=== PATIENT | female | born 1955 | race Caucasian/White ===

== ENCOUNTER 2020-08-13 13:29 | Inpatient (IN) | payer MEDICARE ==
[~2020-08-13] VITALS: Ht 157.5 cm; Wt 60.1 kg
[2020-08-13] MEDS ORDERED: ONDANSETRON 4 MG/2 ML (SDV) Z0FRAN IV PRN (14:00)
[2020-08-13] MEDS ORDERED: polyethylene glycoL POWDER 17 GM (MIRALAX) PACK PO PRN (14:00)
[2020-08-13] MEDS ORDERED: BISACODYL 10 MG SUPP (DULCOLAX) PR PRN (14:00)
[2020-08-13] MEDS ORDERED: MELATONIN 3 MG TABLET PO PRN (14:00)
[2020-08-13] MEDS ORDERED: diphenhydrAMINE 25 MG TAB (BENADRYL) PO PRN (14:00)
[2020-08-13] MEDS ORDERED: ONDANSETRON 4 MG (ZOFRAN) ORAL DISSOLVE TAB PO PRN (14:00)
[2020-08-13] MEDS ORDERED: ANTACID SUSP 30 ML UDC (MYLANTA) PO PRN (14:00)
[2020-08-13 14:54] VITALS: BP 146/96
[2020-08-13] MEDS: ENOXAPARIN 40 MG/0.4 ML (LOVENOX) SYR SC SCH (15:17)
[2020-08-13] MEDS: inSUlin ASPART (NovoLOG) 1 UNIT/0.01 ML (CHARGE PER UNIT) SC SCH ×2 (15:24→22:39)
--- NOTE | 2020-08-13 16:37 | NUR ---
LAMONT ALEXANDER admitted to room 425-1, with an admitting diagnosis of SOB, covid +, on 08/13/20 from [facility] [place] via stretcher EMS, accompanied by EMS staff .LAMONT ALEXANDER introduced to surroundings, call light, bed controls, phone, TV, temperature control, lights, meal times, smoking policy, visitor policy, side rail policy, bathrooms and showers. Patient Rights given to patient in the handbook. LAMONT ALEXANDER verbalizes understanding that [facility] is not responsible for the loss or damage to any personal effects or valuables that are kept in the patients posession during their hospitalization. The following Patient Care Plans and discharge were discussed with the patient, LAMONT ALEXANDER verbalizes understanding of Interdisciplinary Patient Education. Patient was informed about the Rapid Response Team and its purpose.
[2020-08-13] MEDS ORDERED: FLU QUADRIvalent (3YOA+) 60 mcg/0.5 ml 2020-21 (AFLURIA) IM ONE (20:00)
[2020-08-13] MEDS: DOCUSATE SODIUM 100 MG (COLACE) CAP PO SCH (20:20)
[2020-08-13] MEDS: SENNOSIDES 8.6 MG (SENOKOT) TAB PO SCH (20:20)
[2020-08-13 20:24] VITALS: BP 127/77
[2020-08-13] MEDS: LATANOPROST 0.005% (XALATAN) OPHTH SOLN 2.5 ML OU SCH (21:00)
[2020-08-13] MEDS: ACETAMINOPHEN 325 MG TABLET PO PRN (22:38)
[2020-08-13] MEDS: MONTELUKAST 10 MG (SINGULAIR) TAB PO SCH (22:38)
[2020-08-13] MEDS ORDERED: RT-ALBUTEROL INHALER HFA (VENTOLIN HFA) 18 GM IH ONE (23:02)
[2020-08-13] MEDS: RT-ALBUTEROL INHALER HFA (VENTOLIN HFA) 18 GM IH SCH (23:05)
[2020-08-13 23:31] VITALS: BP 127/71
[2020-08-13] MEDS ORDERED: RT-ALBUTEROL INHALER HFA (VENTOLIN HFA) 18 GM IH PRN (23:45)
[2020-08-14] VITALS (19 sets, daily range): BP systolic 94–152; BP diastolic 60–91
[2020-08-14] MEDS ORDERED: DIPH25CA79 PO (01:10)
[2020-08-14] MEDS ORDERED: LEVA0.316 IH (01:10)
[2020-08-14] MEDS ORDERED: PRD20T PO ×2 (01:10)
[2020-08-14] MEDS ORDERED: TIOT18CA2 IH (01:10)
[2020-08-14] MEDS ORDERED: SITA100T12 PO ×2 (01:10→14:33)
[2020-08-14] MEDS ORDERED: GUAI600T43 PO (01:10)
[2020-08-14] MEDS ORDERED: CHOL200078 PO (01:10)
[2020-08-14] MEDS ORDERED: FLUT12AE4 INH (01:10)
[2020-08-14] MEDS ORDERED: LATA2.5D19 OU (01:10)
[2020-08-14] MEDS ORDERED: FENO160T12 PO (01:10)
[2020-08-14] MEDS ORDERED: OMEP20TA7 PO (01:10)
[2020-08-14] MEDS ORDERED: PRIM50TA33 PO (01:10)
[2020-08-14] MEDS ORDERED: DUPI300S SQ (01:10)
[2020-08-14] MEDS ORDERED: [UNRECOGNIZED DRUG - CODE] MC (01:10)
[2020-08-14] MEDS ORDERED: MONT10TA26 PO (01:10)
[2020-08-14] MEDS ORDERED: FLAX1CAP6 PO (01:10)
[2020-08-14] MEDS ORDERED: CETI10TA49 PO (01:10)
[2020-08-14] MEDS ORDERED: IMMU50VI2 (01:10)
[2020-08-14] MEDS ORDERED: OMAL150S SQ (01:10)
[2020-08-14] MEDS ORDERED: MYCO500T34 PO (01:10)
--- NOTE | 2020-08-14 01:13 | NUR ---
MED REC ENTERED PER [facility] EMERGENCY DEPARTMENT- JANELLE ZAMBRANO- TRANSFER PAPER AND PATIENT REPORT BY THIS RN.
[2020-08-14 04:37] LABS: BASOPHILS % (AUTO) 0 % (0-10); EOSINOPHILS % (AUTO) 0 % (0-10); HEMATOCRIT 43 % (35-52); HEMOGLOBIN 14.5 g/dL (11.5-16.0); LYMPHOCYTES # (AUTO) 1.1 10^3/uL (1.0-4.0); LYMPHOCYTES % (AUTO) 29 % (12-44); MEAN CORPUSCULAR HEMOGLOBIN 31 pg (25-34); MEAN CORPUSCULAR HGB CONC 34 g/dL (32-36); MEAN CORPUSCULAR VOLUME 91 fL (80-99); MEAN PLATELET VOLUME 11.6 fL (9.0-12.2); MONOCYTES # (AUTO) 0.4 10^3/uL (0.0-1.0); MONOCYTES % (AUTO) 11 % (0-12); NEUTROPHILS # (AUTO) 2.3 10^3/uL (1.8-7.8); NEUTROPHILS % (AUTO) 59 % (42-75); PLATELET COUNT 181 10^3/uL (130-400); WHITE BLOOD COUNT 3.9 10^3/uL (4.3-11.0)
[2020-08-14 04:50] LABS: ALBUMIN 3.7 GM/DL (3.2-4.5); CHLORIDE 103 MMOL/L (98-107); POTASSIUM 3.8 MMOL/L (3.6-5.0); SODIUM 136 MMOL/L (135-145)
[2020-08-14 04:51] LABS: CALCIUM 8.5 MG/DL (8.5-10.1)
[2020-08-14 04:52] LABS: GLUCOSE 150 MG/DL (70-105)
[2020-08-14 04:53] LABS: TOTAL PROTEIN 6.6 GM/DL (6.4-8.2)
[2020-08-14 04:54] LABS: BILIRUBIN,TOTAL 0.5 MG/DL (0.1-1.0); CARBON DIOXIDE 20 MMOL/L (21-32)
[2020-08-14 04:56] LABS: ALKALINE PHOSPHATASE 63 U/L (40-136); CREATININE SERUM 0.74 MG/DL (0.60-1.30); GFR ESTIMATED > 60
[2020-08-14 04:57] LABS: BUN/CREATININE RATIO 18
[2020-08-14 04:59] LABS: ALANINE AMINOTRANSFERASE 73 U/L (0-55); MAGNESIUM 1.8 MG/DL (1.6-2.4)
[2020-08-14] MEDS: KCL 20 MEQ TAB (K-DUR) PO SCH (05:10)
[2020-08-14] MEDS: MAGNESIUM 1 GM/100 ML IVPB 100 ML IV SCH (05:10)
[2020-08-14] MEDS: POTASSIUM CL 10MEQ/50ML IVPB 50 ML IV SCH (05:10)
[2020-08-14] MEDS: inSUlin ASPART (NovoLOG) 1 UNIT/0.01 ML (CHARGE PER UNIT) SC SCH ×4 (05:10→20:12)
[2020-08-14] MEDS ORDERED: dexAMETHasone 6 MG TAB (DECADRON) PO SCH (07:00)
[2020-08-14] MEDS: DOCUSATE SODIUM 100 MG (COLACE) CAP PO SCH ×2 (08:09→20:13)
[2020-08-14] MEDS: SENNOSIDES 8.6 MG (SENOKOT) TAB PO SCH ×2 (08:09→20:08)
[2020-08-14] MEDS ORDERED: NS IV 500 ML 500 ML IV SCH (08:19)
--- NOTE | 2020-08-14 08:54 | History & Physical-Hospitalist ---
History of Present Illness HPI/Chief Complaint Pt is a 65yoCF with a PMH of severe COPD/Asthma, NIDDMII who presented to outside ER due to cough, SOB, and fever. Her symptoms started on 08/11 with a high fever and severe fatigue. She didn't want to go with the ER with such a high fever so waited until 08/13 to be seen in the ER. She was found to be hypoxia and COVID positive prompting admission. This morning she states she has a severe cough and is conversationally dyspneic throughout our conversation. She denies history of intubation from asthma/COPD but states she has been "very close." Source: patient Exam Limitations: no limitations Date Seen 08/14/20 Time Seen by a Provider: 08:56 Attending Physician Zoe Ahuja MD PCP Amador Pal MD Referring Physician Date of Admission Aug 13, 2020 at 14:48 Home Medications & Allergies Home Medications Reviewed patient Home Medication Reconciliation performed by pharmacy medication reconciliations polysomnographic technician and/or nursing. Patients Allergies have been reviewed. Allergies Allergies Coded Allergies HARLEEN Inhibitors (Verified Allergy, Severe, 08/13/20) amoxicillin (Verified Allergy, Severe, 08/13/20) azithromycin (Verified Allergy, Severe, 08/13/20) ciprofloxacin (Verified Allergy, Severe, 08/13/20) clavulanic acid (Verified Allergy, Severe, 08/13/20) glycine (Verified Allergy, Severe, 08/13/20) immune globulin,alpha (IgA) greater than 50 mcg/mL (Verified Allergy, Severe, 08/13/20) immune globulin,gamma (IgG) human (Verified Allergy, Severe, 08/13/20) losartan (Verified Allergy, Severe, 08/13/20) regadenoson (Verified Allergy, Severe, 08/13/20) tetracycline (Verified Allergy, Severe, 08/13/20) soy (Verified Allergy, Intermediate, Wheezing, 08/13/20) strawberry (Verified Allergy, Intermediate, 08/13/20) fentanyl (Verified Allergy, Mild, 08/13/20) wheat (Verified Allergy, Mild, 08/13/20) Past Dnpshet-Fawyyi-Jkquer Hx Past Med/Social Hx: Reviewed Nursing Past Med/Soc Hx Patient Social History Alcohol Use: Rarely Uses Alcohol Beverage of Choice: Wine Recreational Drug Use: No Smoking Status: Never a Smoker Physical Abuse Screen: No Sexual Abuse: No Recent Foreign Travel: No Contact w/other who traveled: No Recent Hopitalizations: Yes Recent Infectious Disease Expo: No Immunizations Up To Date Pediatric: No Date of Pneumonia Vaccine: Jan 28, 2017 Seasonal Allergies Seasonal Allergies: Yes Past Medical History Respiratory: Asthma, COPD Currently Using CPAP: No Currently Using BIPAP: No : No Sexually Transmitted Disease: No HIV/AIDS: No Female Reproductive Disorders: Denies Gastrointestinal: Gastroesophageal Reflux Endocrine: Diabetes, Non-Insulin dep Are Your Blood Sugars Over 250: No HEENT: Cataract, Glaucoma Loss of Vision: Denies Hearing Impairment: Denies History of Blood Disorders: No Adverse Reaction to Blood Uribe: No Family History Patient reports no known family medical history. Review of Systems Constitutional: chills, fever, malaise, weakness EENTM: No eye pain, No nose congestion Respiratory: cough, dyspnea on exertion, short of breath Cardiovascular: No chest pain, No Hx of Intervention Gastrointestinal: No abdominal pain, No constipation, No diarrhea, No nausea, No vomiting Genitourinary: incontinence (stress) Musculoskeletal: muscle cramps Skin: no symptoms reported Psychiatric/Neurological: No Symptoms Reported Physical Exam Physical Exam Vital Signs Vital Signs - First Documented 08/13/20 08/14/20 14:54 15:27 Temp 35.3 Pulse 97 Resp 20 B/P (MAP) 146/96 Pulse Ox 95 O2 Delivery Nasal Cannula O2 Flow Rate 3.00 FiO2 28 Capillary Refill : Less Than 3 Seconds Height, Weight, BMI Height: '" Weight: lbs. oz. kg; 24.10 BMI Method: General Appearance: No Apparent Distress, WD/WN Respiratory: No Accessory Muscle Use, Decreased Breath Sounds, Stridor (when I first entered the room but cleared) Cardiovascular: Regular Rate, Rhythm, No Murmur Gastrointestinal: Normal Bowel Sounds, Non Tender, Soft Extremity: Normal Inspection, No Pedal Edema Neurologic/Psychiatric: Alert, Oriented x3, Normal Mood/Affect Skin: Erythema Results Results/Procedures Labs Laboratory Tests 08/14/20 04:12 08/15/20 02:45 Patient resulted labs reviewed. Imaging: Reviewed Imaging Report Assessment/Plan Admission Diagnosis COVID19 Hypoxia COPD/Asthma Continue decadron Discussed EUA status of remdesivir and convalescent plasma with patient who agrees to treatment Due to stridor and conversational dyspnea will transfer to ICU as is high risk for decompensation Discussed with lincoln Harrison Continue home meds as able MAT protocol IS Lovenox NIDDMII anticipate higher BS with steroids SSI Elevated LFTs Mild, trend with remdesivir Admission Status: Inpatient Order (span 2 midnights) Reason for Inpatient Admission: high risk for decopmensation, hypoxia, will take more than two midnights to optimize for DC Clinical Quality Measures DVT/VTE Risk/Contraindication: Risk Factor Score Per Nursin RFS Level Per Nursing on Admit: 3=High GERA AVALOS MD Aug 14, 2020 08:54
--- NOTE | 2020-08-14 09:00 | NUR ---
REPORT GIVEN TO JAMEL HUERTAS IN ICU.
[2020-08-14] MEDS ORDERED: REMDESIVIR INJ 200 MG in NS (IVPB) 210 ML IV NR (10:00)
--- NOTE | 2020-08-14 10:27 | NUR ---
PT TRANSFER TO ICU 9 AT THIS TIME VIA BED.
[2020-08-14] MEDS: RT-ALBUTEROL INHALER HFA (VENTOLIN HFA) 18 GM IH SCH ×3 (10:50→22:06)
[2020-08-14] MEDS: CEFEPIME INJECTION 1,000 MG in WATER (STERILE) FOR INJECTION 10 ML IV SCH ×3 (13:24→23:58)
--- NOTE | 2020-08-14 13:25 | NUR ---
pt assisted up to bed side bathroom at this time, pt tolerated well. pt face and back noted to be red. pt back to bed. vss. Rivera MANAGER TALENT ACQUISITION states pt has been red. pt denies any needs.
[2020-08-14] MEDS ORDERED: DIPH50CA PO (14:33)
--- NOTE | 2020-08-14 14:37 | Diagnostic Imaging Report ---
INDICATION: Pneumonia. Hypoxia. COMPARISON: None. FINDINGS: Single frontal view of the chest demonstrates normal heart size. Pulmonary vasculature is mildly prominent. There is also slight prominence of the interstitium. There is no prior available for comparison purposes. There is no large effusion or pneumothorax. Osseous structures show no gross acute abnormalities. IMPRESSION: 1. Slight prominence of the interstitium, which may relate to interstitial edema given the mild vascular congestion. Interstitial pneumonia however cannot be excluded. Clinical correlation is advised. Dictated by: Dictated on workstation # [id number]
[2020-08-14] MEDS ORDERED: LEVA15HF5 IH (14:48)
[2020-08-14] MEDS ORDERED: OMEG10005 PO (14:48)
[2020-08-14] MEDS ORDERED: CYAN500T44 PO (14:48)
[2020-08-14] MEDS ORDERED: PRD10T PO (14:50)
[2020-08-14] MEDS ORDERED: RT-ALBUTEROL INHALER HFA (VENTOLIN HFA) 18 GM IH PRN (16:00)
--- NOTE | 2020-08-14 16:22 | NUR ---
SPOKE WITH THE PT AND WENT THRU THE EXT MED HISTORY TO COMPLETE THE MED REC PT HAD A MEDICATION LIST WITH HER AND SHE SENT ME A PICTURE THRU TEXT MESSAGE PT GETS ALL HER INHALER SAMPLES FROM DR. ESTRADA PT GETS PRIVIGEN INJECTIONS EVERY 2 WEEKS BUT SHE DOESNT KNOW THE DOSE THEREFORE I ENTERED IT AN UNKNOWN DOSE OTC: DIPHENHYDRAMINE FLAXSEED VITAMIN D3 VITAMIN B12 MUCINEX ZYRTEC
[2020-08-14] MEDS: ENOXAPARIN 40 MG/0.4 ML (LOVENOX) SYR SC SCH (16:31)
[2020-08-14] MEDS: guaiFENesin/DM (ROBITUSSIN DM) 10 ML UDC PO PRN (19:55)
[2020-08-14] MEDS: LATANOPROST 0.005% (XALATAN) OPHTH SOLN 2.5 ML OU SCH (20:05)
[2020-08-14] MEDS: PRIMIDONE 50 MG TAB (MYSOLINE) PO SCH (20:13)
[2020-08-14] MEDS: MONTELUKAST 10 MG (SINGULAIR) TAB PO SCH (20:13)
[2020-08-14] MEDS: PANTOPRAZOLE 40 MG (PROTONIX) TAB PO SCH (20:13)
[2020-08-15] VITALS (24 sets, daily range): BP systolic 98–131; BP diastolic 61–95
[2020-08-15] MEDS: guaiFENesin/DM (ROBITUSSIN DM) 10 ML UDC PO PRN ×5 (00:02→23:32)
[2020-08-15] MEDS: ACETAMINOPHEN 325 MG TABLET PO PRN ×2 (00:12→09:21)
[2020-08-15] MEDS: RT-ALBUTEROL INHALER HFA (VENTOLIN HFA) 18 GM IH SCH ×6 (01:53→23:39)
[2020-08-15 02:56] LABS: BASOPHILS % (AUTO) 0 % (0-10); EOSINOPHILS % (AUTO) 0 % (0-10); HEMATOCRIT 40 % (35-52); HEMOGLOBIN 13.1 g/dL (11.5-16.0); LYMPHOCYTES # (AUTO) 1.7 10^3/uL (1.0-4.0); LYMPHOCYTES % (AUTO) 22 % (12-44); MEAN CORPUSCULAR HEMOGLOBIN 31 pg (25-34); MEAN CORPUSCULAR HGB CONC 33 g/dL (32-36); MEAN CORPUSCULAR VOLUME 93 fL (80-99); MONOCYTES # (AUTO) 0.6 10^3/uL (0.0-1.0); MONOCYTES % (AUTO) 8 % (0-12); NEUTROPHILS # (AUTO) 5.3 10^3/uL (1.8-7.8); NEUTROPHILS % (AUTO) 70 % (42-75); PLATELET COUNT 163 10^3/uL (130-400); WHITE BLOOD COUNT 7.7 10^3/uL (4.3-11.0)
[2020-08-15 03:18] LABS: ALBUMIN 3.7 GM/DL (3.2-4.5); CHLORIDE 102 MMOL/L (98-107); POTASSIUM 3.4 MMOL/L (3.6-5.0); SODIUM 137 MMOL/L (135-145)
[2020-08-15 03:20] LABS: CALCIUM 8.2 MG/DL (8.5-10.1)
[2020-08-15 03:21] LABS: GLUCOSE 131 MG/DL (70-105); TOTAL PROTEIN 6.1 GM/DL (6.4-8.2)
[2020-08-15 03:22] LABS: CARBON DIOXIDE 22 MMOL/L (21-32)
[2020-08-15 03:23] LABS: BILIRUBIN,TOTAL 0.6 MG/DL (0.1-1.0)
[2020-08-15 03:24] LABS: ALKALINE PHOSPHATASE 47 U/L (40-136); CREATININE SERUM 0.77 MG/DL (0.60-1.30); GFR ESTIMATED > 60; PHOSPHORUS 2.4 MG/DL (2.3-4.7)
[2020-08-15 03:25] LABS: BUN/CREATININE RATIO 22
[2020-08-15 03:27] LABS: ALANINE AMINOTRANSFERASE 55 U/L (0-55); MAGNESIUM 1.7 MG/DL (1.6-2.4)
[2020-08-15] MEDS: MAGNESIUM 1 GM/100 ML IVPB 100 ML IV SCH ×3 (03:40→03:56)
[2020-08-15] MEDS: POTASSIUM CL 10MEQ/50ML IVPB 50 ML IV SCH (03:41)
[2020-08-15] MEDS: KCL 20 MEQ TAB (K-DUR) PO SCH (03:41)
--- NOTE | 2020-08-15 04:58 | Pulmonary Consultation ---
History of Present Illness History of Present Illness Date Seen by Provider: Aug 15, 2020 Time Seen by Provider: 04:53 Date of Admission Allergies and Home Medications Allergies Coded Allergies: HARLENE Inhibitors (Verified Allergy, Severe, 08/13/20) amoxicillin (Verified Allergy, Severe, 08/13/20) azithromycin (Verified Allergy, Severe, 08/13/20) ciprofloxacin (Verified Allergy, Severe, 08/13/20) clavulanic acid (Verified Allergy, Severe, 08/13/20) glycine (Verified Allergy, Severe, 08/13/20) immune globulin,alpha (IgA) greater than 50 mcg/mL (Verified Allergy, Severe, 08/13/20) immune globulin,gamma (IgG) human (Verified Allergy, Severe, 08/13/20) losartan (Verified Allergy, Severe, 08/13/20) regadenoson (Verified Allergy, Severe, 08/13/20) tetracycline (Verified Allergy, Severe, 08/13/20) soy (Verified Allergy, Intermediate, Wheezing, 08/13/20) strawberry (Verified Allergy, Intermediate, 08/13/20) fentanyl (Verified Allergy, Mild, 08/13/20) wheat (Verified Allergy, Mild, 08/13/20) Home Medications Cetirizine HCl 10 Mg Tablet, 5 MG PO DAILY, (Reported) Cholecalciferol (Vitamin D3) 50 Mcg Tab.chew, 1,000 UNITS PO DAILY, (Reported) Cyanocobalamin (Vitamin B-12) 500 Mcg Tablet, 500 MCG PO DAILY, (Reported) Diphenhydramine HCl 50 Mg Capsule, 100 MG PO DAILY, (Reported) TAKES 2 (50MG) TABLETS Dupilumab 300 Mg/2 Ml Syringe, 300 MG SQ EVERY 2 WEEKS, (Reported) Fenofibrate 160 Mg Tablet, 160 MG PO DAILY, (Reported) Fluticasone/Salmeterol 12 Gm Hfa.aer.ad, 2 PUFF INH Q12H, (Reported) Guaifenesin 600 Mg Tab.er.12h, 600 MG PO BID, (Reported) Immune Globulin,Gamma(IgG) 50 Ml Vial, Unknown Dose EVERY 2 WEEKS, (Reported) Latanoprost 2.5 Ml Drops, 1 DROP OU HS, (Reported) Levalbuterol Tartrate 15 Gm Hfa.aer.ad, 2 PUFF IH Q4H PRN for SHORTNESS OF BREATH, (Reported) Montelukast Sodium 10 Mg Tablet, 10 MG PO HS, (Reported) Mycophenolate Mofetil 500 Mg Tablet, 1,000 MG PO BID, (Reported) TAKES 2 (500MG) CAPSULES BID Omalizumab 150 Mg/1 Ml Syringe, 150 MG SQ EVERY 2 WEEKS, (Reported) [place]-3 Fatty Acids 1,000 Mg Capsule, 4,000 MG PO DAILY, (Reported) Omeprazole 20 Mg Tablet.dr, 20 MG PO BID, (Reported) Prednisone 20 Mg Tab, 20 MG PO DAILY, (Reported) Prednisone 10 Mg Tab, 10 MG PO DAILY, (Reported) Primidone 50 Mg Tablet, 50 MG PO HS, (Reported) Sitagliptin Phosphate 100 Mg Tablet, 100 MG PO DAILY, (Reported) TAKE WITH BREAKFAST Tiotropium Falcon 1 Inh Aerp, 18 MCG IH DAILY, (Reported) Past Dvuptaj-Dycpcr-Wchhsi Hx Past Med/Social Hx: Reviewed Nursing Past Med/Soc Hx Patient Social History Alcohol Use: Rarely Uses Number of Drinks Today: 0 Alcohol Beverage of Choice: Wine Recreational Drug Use: No Smoking Status: Never a Smoker Recent Foreign Travel: No Contact w/Someone Who Travel: No Recent Infectious Disease Expo: No Recent Hopitalizations: Yes Immunizations Up To Date PED Vaccines UTD: No Date of Pneumonia Vaccine: Jan 28, 2017 Seasonal Allergies Seasonal Allergies: Yes Past Medical History Surgeries: Yes Respiratory: Yes Asthma Currently Using CPAP: No Currently Using BIPAP: No Neurological: No : No Female Reproductive Disorders: Denies Sexually Transmitted Disease: No HIV/AIDS: No Genitourinary: No Gastrointestinal: Yes Gastroesophageal Reflux Musculoskeletal: Yes Endocrine: Yes Diabetes, Non-Insulin dep Are Your Blood Sugars Over 250: No HEENT: Yes Cataract, Glaucoma Loss of Vision: Denies Hearing Impairment: Denies Cancer: No Psychosocial: No Integumentary: No Blood Disorders: No Adverse Reaction/Blood Tranf: No Family Medical History Patient reports no known family medical history. Sepsis Event Evaluation Height, Weight, BMI Height: '" Weight: lbs. oz. kg; 24.10 BMI Method: Exam Exam Vital Signs Date Time Temp Pulse Resp B/P (MAP) Pulse Ox O2 Delivery O2 Flow Rate FiO2 08/15/20 04:07 37.2 Nasal Cannula 3.00 08/15/20 02:00 80 26 116/73 (87) 97 Nasal Cannula 4.00 08/15/20 01:52 95 Nasal Cannula 3.00 08/15/20 01:00 85 23 120/73 (89) 97 Nasal Cannula 4.00 08/15/20 00:12 37.9 08/15/20 00:00 92 131/80 (97) 94 Nasal Cannula 4.00 08/14/20 23:56 37.9 93 24 92 Nasal Cannula 4.00 08/14/20 23:00 90 36 129/80 (96) 93 Nasal Cannula 4.00 08/14/20 22:04 92 Nasal Cannula 3.00 08/14/20 22:00 85 23 136/84 (101) 95 Nasal Cannula 4.00 08/14/20 21:00 86 29 94/75 (81) 90 Nasal Cannula 4.00 08/14/20 20:00 90 28 125/74 (91) 93 Nasal Cannula 4.00 08/14/20 19:55 91 Nasal Cannula 4.00 08/14/20 19:45 37.7 89 26 126/74 (91) 90 Nasal Cannula 4.00 08/14/20 19:15 95 114/67 (83) 93 Nasal Cannula 2.00 08/14/20 19:03 92 08/14/20 19:02 92 Nasal Cannula 3.00 08/14/20 19:00 36.4 08/14/20 18:00 82 32 127/73 (91) 95 Nasal Cannula 2.00 08/14/20 17:00 80 19 117/72 (87) 95 Nasal Cannula 2.00 08/14/20 16:00 80 18 113/60 (77) 95 Nasal Cannula 2.00 08/14/20 15:27 36.0 80 93 28 08/14/20 15:00 86 18 123/66 (85) 95 Nasal Cannula 2.00 08/14/20 14:44 93 Nasal Cannula 2.00 08/14/20 14:00 79 13 129/91 (104) 92 Nasal Cannula 2.00 08/14/20 13:00 78 26 110/72 (85) 89 Nasal Cannula 2.00 08/14/20 12:41 80 08/14/20 12:10 36.0 78 23 152/78 (102) 92 Nasal Cannula 08/14/20 10:50 95 Nasal Cannula 2.00 08/14/20 10:45 75 29 104/65 (78) 95 Nasal Cannula 2.00 08/14/20 10:44 78 08/14/20 09:37 36.8 74 22 132/81 96 Nasal Cannula 2.00 08/14/20 08:54 36.8 74 22 132/81 (98) 96 Nasal Cannula 2.00 08/14/20 08:00 Nasal Cannula 2.00 I & O 08/15/20 07:00 Intake Total 1720 ml Output Total 1250 ml Balance 470 ml Height & Weight Height: '" Weight: lbs. oz. kg; 24.10 BMI Method: General Appearance: No Apparent Distress, WD/WN Respiratory: No Accessory Muscle Use, Decreased Breath Sounds, Stridor (when I first entered the room but cleared) Cardiovascular: Regular Rate, Rhythm, No Murmur Capillary Refill: Less Than 3 Seconds Extremity: Normal Inspection, No Pedal Edema Neurologic/Psychiatric: Alert, Oriented x3, Normal Mood/Affect Skin: Erythema Results Lab Laboratory Tests 08/14/20 04:12 08/15/20 02:45 Assessment/Plan Assessment/Plan COVID 19 with hypoxia -Currently on 3 liters/min -S/p Remdisivir and CVP -Decadron - -Give 40mg of Lasix IV x 1 COPD/AsthmaAE -Change decadron to 10mg IV daily -Add Advair to albuterol NIDDMII SSI Elevated LFTs Mild, trend with remdesivir MARYAM HENRY DO Aug 15, 2020 04:58
[2020-08-15] MEDS ORDERED: FUROSEMIDE 40 MG/4 ML INJ (LASIX) IVP ONE (05:00)
[2020-08-15] MEDS: inSUlin ASPART (NovoLOG) 1 UNIT/0.01 ML (CHARGE PER UNIT) SC SCH ×4 (05:38→20:03)
[2020-08-15] MEDS: CEFEPIME INJECTION 1,000 MG in WATER (STERILE) FOR INJECTION 10 ML IV SCH ×4 (05:51→23:32)
[2020-08-15 07:02] LABS: BILIRUBIN,URINE NEGATIVE (NEGATIVE); CLARITY,URINE CLEAR; COLOR,URINE YELLOW; GLUCOSE, URINE (UA) 1+ (NEGATIVE); KETONES,URINE TRACE (NEGATIVE); LEUKOCYTE ESTERASE ,URINE NEGATIVE (NEGATIVE); NITRITE,URINE NEGATIVE (NEGATIVE); PROTEIN,URINE NEGATIVE (NEGATIVE)
[2020-08-15 07:10] LABS: BACTERIA,URINE TRACE /HPF
[2020-08-15] MEDS ORDERED: KCL 20 MEQ TAB (K-DUR) PO ONE (08:00)
[2020-08-15] MEDS ORDERED: POTASSIUM PHOSPHATE INJ 15 MM in NS (IVPB) 250 ML IV ONE (08:00)
--- NOTE | 2020-08-15 08:28 | Diagnostic Imaging Report ---
Portable erect AP chest at 3:51. Indication: Dyspnea Findings: The heart is stable in size when compared to the prior exam of 08/14/2020. The central pulmonary vascularity and the prominent interstitial densities in both lungs seem previous are again evident and essentially no different. There may be a very small amount of fluid in each lung base. There is no consolidated pneumonia identified although a small focus of increased density has developed in the right lung base near the costophrenic angle. The mediastinum is not widened. The osseous structures are intact. Impression: When compared to the prior study there has been no significant change. A followup exam would be recommended for continued evaluation. Dictated by: Dictated on workstation # [id number]
[2020-08-15] MEDS: SENNOSIDES 8.6 MG (SENOKOT) TAB PO SCH ×2 (09:12→20:03)
[2020-08-15] MEDS: DOCUSATE SODIUM 100 MG (COLACE) CAP PO SCH ×2 (09:12→20:03)
[2020-08-15] MEDS: PANTOPRAZOLE 40 MG (PROTONIX) TAB PO SCH (09:12)
[2020-08-15] MEDS: ADVAIR HFA 115/21 MCG INHALER 8 GM IH SCH ×2 (10:34→18:08)
[2020-08-15] MEDS: REMDESIVIR INJ 100 MG in NS (IVPB) 230 ML IV SCH (10:52)
--- NOTE | 2020-08-15 12:56 | Physician Query Clarification ---
"Physician Query-General Query to Physician: The medical record reflects the following clinical scenario: History/Risk factors: COPD, COVID 19 Clinical Findings: Hypoxia, Chills, Fever, Cough, Procalcitonin 1.31, CXR: Int erstitial pneumonia however cannot be excluded. Clinical correlation is advised. Treatment: ICU, monitoring, Breathing RX, IV ABX, IV Steroids, Supplemental O2 up to 4L Question: What condition best reflects the above clinical scenario? Please document response in the Progress notes or Discharge Summary. Pneumonia due to Covid 19 Covid 19 (as currently documented) Other , with explanation of the clinical findings Clinically undetermined, no explanation for the clinical findings Please remember a lack of response to the above will prompt a phone page by CDI/coding staff In responding to this query, please exercise your independent professional judgment. The purpose of this communication is to more accurately reflect the complexity of your patients condition. The fact that a question is asked does not imply that any particular answer is desired or expected. Thank you for timely response to this clarification. Komal Mercer, MSN, RN RN Specialist-Clinical Doc Improvement CD -Health Info Mgmt Operations [address] [facility] t: [phone] | f: [phone] If you are unable to reach me at my extension, I may be working from home. Please contact me at [phone] PHYSICIAN RESPONSE: Based on the clinical findings in the record, please respond to the query above on this document as an addendum. Physician Response: Physician Response COVID19 If you have questions please contact: Wax Ball Molder: Ext: Thank you for your time and cooperation. Clinical Mortar Man/Wax Ball Molder This is a permanent part of the medical record KOMAL MERCER Aug 15, 2020 12:56 GERA AVALOS MD Aug 15, 2020 14:09"
[2020-08-15] MEDS: ENOXAPARIN 40 MG/0.4 ML (LOVENOX) SYR SC SCH (16:07)
[2020-08-15] MEDS: LATANOPROST 0.005% (XALATAN) OPHTH SOLN 2.5 ML OU SCH (19:56)
[2020-08-15] MEDS: MONTELUKAST 10 MG (SINGULAIR) TAB PO SCH (20:03)
[2020-08-15] MEDS: PRIMIDONE 50 MG TAB (MYSOLINE) PO SCH (20:03)
[2020-08-16] VITALS (12 sets, daily range): BP systolic 104–142; BP diastolic 61–82
[2020-08-16] MEDS: RT-ALBUTEROL INHALER HFA (VENTOLIN HFA) 18 GM IH SCH ×6 (02:33→22:59)
[2020-08-16 03:16] LABS: BASOPHILS % (AUTO) 0 % (0-10); EOSINOPHILS % (AUTO) 0 % (0-10); HEMATOCRIT 39 % (35-52); HEMOGLOBIN 12.8 g/dL (11.5-16.0); LYMPHOCYTES # (AUTO) 1.3 10^3/uL (1.0-4.0); LYMPHOCYTES % (AUTO) 32 % (12-44); MEAN CORPUSCULAR HEMOGLOBIN 31 pg (25-34); MEAN CORPUSCULAR HGB CONC 33 g/dL (32-36); MEAN CORPUSCULAR VOLUME 93 fL (80-99); MEAN PLATELET VOLUME 11.3 fL (9.0-12.2); MONOCYTES # (AUTO) 0.5 10^3/uL (0.0-1.0); MONOCYTES % (AUTO) 11 % (0-12); NEUTROPHILS # (AUTO) 2.3 10^3/uL (1.8-7.8); NEUTROPHILS % (AUTO) 57 % (42-75); PLATELET COUNT 164 10^3/uL (130-400); WHITE BLOOD COUNT 4.2 10^3/uL (4.3-11.0)
[2020-08-16 03:26] LABS: ALBUMIN 3.7 GM/DL (3.2-4.5); CHLORIDE 100 MMOL/L (98-107); SODIUM 136 MMOL/L (135-145)
[2020-08-16 03:27] LABS: CALCIUM 8.4 MG/DL (8.5-10.1)
[2020-08-16 03:28] LABS: GLUCOSE 150 MG/DL (70-105); TOTAL PROTEIN 6.4 GM/DL (6.4-8.2)
[2020-08-16 03:29] LABS: CARBON DIOXIDE 23 MMOL/L (21-32)
[2020-08-16 03:30] LABS: BILIRUBIN,TOTAL 0.4 MG/DL (0.1-1.0)
[2020-08-16 03:31] LABS: PHOSPHORUS 2.5 MG/DL (2.3-4.7)
[2020-08-16 03:32] LABS: ALKALINE PHOSPHATASE 55 U/L (40-136); CREATININE SERUM 0.76 MG/DL (0.60-1.30); GFR ESTIMATED > 60
[2020-08-16 03:33] LABS: BUN/CREATININE RATIO 17
[2020-08-16 03:35] LABS: ALANINE AMINOTRANSFERASE 51 U/L (0-55)
[2020-08-16] MEDS: POTASSIUM CL 10MEQ/50ML IVPB 50 ML IV SCH (04:22)
[2020-08-16] MEDS: inSUlin ASPART (NovoLOG) 1 UNIT/0.01 ML (CHARGE PER UNIT) SC SCH ×4 (04:23→20:52)
[2020-08-16] MEDS: MAGNESIUM 1 GM/100 ML IVPB 100 ML IV SCH (04:23)
[2020-08-16] MEDS: KCL 20 MEQ TAB (K-DUR) PO SCH (04:23)
[2020-08-16] MEDS: guaiFENesin/DM (ROBITUSSIN DM) 10 ML UDC PO PRN ×3 (04:36→20:56)
[2020-08-16] MEDS: ACETAMINOPHEN 325 MG TABLET PO PRN (04:37)
[2020-08-16] MEDS: CEFEPIME INJECTION 1,000 MG in WATER (STERILE) FOR INJECTION 10 ML IV SCH ×3 (06:07→17:17)
[2020-08-16] MEDS: ADVAIR HFA 115/21 MCG INHALER 8 GM IH SCH ×2 (08:19→19:58)
--- NOTE | 2020-08-16 08:25 | Pulmonary Progress Note ---
Subjective Time Seen by a Provider: 08:25 Subjective/Events-last exam Pt appears to be doing better. Sepsis Event Evaluation Height, Weight, BMI Height: '" Weight: lbs. oz. kg; 24.10 BMI Method: Exam Exam Vital Signs Date Time Temp Pulse Resp B/P (MAP) Pulse Ox O2 Delivery O2 Flow Rate FiO2 08/16/20 08:19 98 Nasal Cannula 2.00 08/16/20 06:00 69 19 142/80 (100) 95 Nasal Cannula 2.00 08/16/20 05:00 70 12 126/68 (87) 95 Nasal Cannula 2.00 08/16/20 04:27 36.9 Nasal Cannula 2.00 08/16/20 04:00 65 21 119/74 (89) 95 Nasal Cannula 2.00 08/16/20 03:00 66 21 109/73 (85) 94 Nasal Cannula 2.00 08/16/20 02:33 98 Nasal Cannula 2.00 08/16/20 02:00 67 21 111/70 (84) 94 Nasal Cannula 2.00 08/16/20 01:00 70 20 104/62 (76) 93 Nasal Cannula 2.00 08/16/20 01:00 70 08/16/20 00:00 71 19 115/65 (82) 93 Nasal Cannula 2.00 08/15/20 23:27 36.8 Nasal Cannula 2.00 08/15/20 23:00 69 18 99/61 (74) 95 Nasal Cannula 2.00 08/15/20 22:00 75 23 104/61 (75) 94 Nasal Cannula 2.00 08/15/20 21:00 78 24 103/63 (76) 94 Nasal Cannula 2.00 08/15/20 20:00 81 25 98/73 (81) 94 Nasal Cannula 2.00 08/15/20 19:55 94 Nasal Cannula 2.00 08/15/20 19:45 37.1 Nasal Cannula 2.00 08/15/20 19:00 97 124/87 (99) 91 Nasal Cannula 2.00 08/15/20 19:00 97 08/15/20 18:21 95 Nasal Cannula 2.00 08/15/20 18:08 95 Nasal Cannula 2.00 08/15/20 18:00 81 16 113/76 (88) 95 Nasal Cannula 2.00 08/15/20 17:00 81 31 116/78 (91) 94 Nasal Cannula 2.00 08/15/20 16:00 77 18 111/95 (100) 94 Nasal Cannula 2.00 08/15/20 15:41 37.0 08/15/20 15:00 91 38 123/76 (92) 95 Nasal Cannula 2.00 08/15/20 14:46 96 Nasal Cannula 2.00 08/15/20 14:00 82 30 101/67 (78) 95 Nasal Cannula 2.00 08/15/20 13:00 81 48 103/67 (79) 94 Nasal Cannula 2.00 08/15/20 12:52 82 08/15/20 12:00 84 21 103/64 (77) 95 Nasal Cannula 2.00 08/15/20 12:00 36.4 08/15/20 11:00 86 56 105/65 (78) 94 Nasal Cannula 2.00 08/15/20 10:34 94 Nasal Cannula 2.00 08/15/20 10:29 96 Nasal Cannula 2.00 08/15/20 10:00 85 24 124/76 (92) 96 Nasal Cannula 2.00 08/15/20 09:21 38.0 08/15/20 09:00 92 24 120/77 (91) 95 Nasal Cannula 2.00 I & O 08/16/20 07:00 Intake Total 1570 ml Output Total 2100 ml Balance -530 ml Height & Weight Height: '" Weight: lbs. oz. kg; 24.10 BMI Method: General Appearance: No Apparent Distress, WD/WN Respiratory: No Accessory Muscle Use, Decreased Breath Sounds, Stridor (when I first entered the room but cleared) Cardiovascular: Regular Rate, Rhythm, No Murmur Capillary Refill: Less Than 3 Seconds Extremity: Normal Inspection, No Pedal Edema Neurologic/Psychiatric: Alert, Oriented x3, Normal Mood/Affect Skin: Erythema Results Lab Laboratory Tests 08/15/20 02:45 08/16/20 02:55 Assessment/Plan Assessment/Plan COVID 19 with hypoxia -Currently on 3 liters/min -S/p Remdisivir and CVP -Decadron - COPD/AsthmaAE -Change decadron to 10mg IV daily -Pt is still very wheezy. Will continue steroids. -Advair to albuterol NIDDMII SSI Elevated LFTs Mild, trend with remdesivir MARYAM HENRY DO Aug 16, 2020 08:25
[2020-08-16] MEDS: DOCUSATE SODIUM 100 MG (COLACE) CAP PO SCH ×2 (08:56→20:52)
[2020-08-16] MEDS: PANTOPRAZOLE 40 MG (PROTONIX) TAB PO SCH (08:56)
[2020-08-16] MEDS: REMDESIVIR INJ 100 MG in NS (IVPB) 230 ML IV SCH (08:57)
[2020-08-16] MEDS: SENNOSIDES 8.6 MG (SENOKOT) TAB PO SCH ×2 (09:45→20:52)
--- NOTE | 2020-08-16 09:46 | NUR ---
REPORT GIVEN TO JCARL[facility]ULL[facility] 4TH FLOOR. PT WILL BE TRANSFERRED TO ROOM 426 WITH BELONGINGS WHEN REMDESIVIR COMPLETES.
--- NOTE | 2020-08-16 11:01 | NUR ---
Patient arrived to room at this time. I agree with previous RN's assessment and will assume care at this time. All belongings in reach, call light in reach. No needs voiced. Will continue to monitor.
[2020-08-16] MEDS: ENOXAPARIN 40 MG/0.4 ML (LOVENOX) SYR SC SCH (17:17)
[2020-08-16] MEDS: MONTELUKAST 10 MG (SINGULAIR) TAB PO SCH (20:52)
[2020-08-16] MEDS: PRIMIDONE 50 MG TAB (MYSOLINE) PO SCH (20:53)
[2020-08-16] MEDS: LATANOPROST 0.005% (XALATAN) OPHTH SOLN 2.5 ML OU SCH (20:53)
[2020-08-17] VITALS (7 sets, daily range): BP systolic 105–121; BP diastolic 60–76
[2020-08-17] MEDS: CEFEPIME INJECTION 1,000 MG in WATER (STERILE) FOR INJECTION 10 ML IV SCH ×5 (00:02→23:12)
[2020-08-17] MEDS: RT-ALBUTEROL INHALER HFA (VENTOLIN HFA) 18 GM IH SCH ×6 (02:56→23:05)
[2020-08-17] MEDS: guaiFENesin/DM (ROBITUSSIN DM) 10 ML UDC PO PRN (03:30)
[2020-08-17] MEDS: inSUlin ASPART (NovoLOG) 1 UNIT/0.01 ML (CHARGE PER UNIT) SC SCH ×4 (06:13→20:22)
[2020-08-17 06:22] LABS: BASOPHILS % (AUTO) 0 % (0-10); EOSINOPHILS % (AUTO) 0 % (0-10); HEMATOCRIT 37 % (35-52); HEMOGLOBIN 12.2 g/dL (11.5-16.0); LYMPHOCYTES # (AUTO) 1.5 10^3/uL (1.0-4.0); LYMPHOCYTES % (AUTO) 29 % (12-44); MEAN CORPUSCULAR HEMOGLOBIN 31 pg (25-34); MEAN CORPUSCULAR HGB CONC 33 g/dL (32-36); MEAN CORPUSCULAR VOLUME 92 fL (80-99); MEAN PLATELET VOLUME 11.8 fL (9.0-12.2); MONOCYTES # (AUTO) 0.4 10^3/uL (0.0-1.0); MONOCYTES % (AUTO) 8 % (0-12); NEUTROPHILS # (AUTO) 3.1 10^3/uL (1.8-7.8); NEUTROPHILS % (AUTO) 62 % (42-75); PLATELET COUNT 165 10^3/uL (130-400); WHITE BLOOD COUNT 5.1 10^3/uL (4.3-11.0)
[2020-08-17 06:38] LABS: ALANINE AMINOTRANSFERASE 47 U/L (0-55); ALBUMIN 3.3 GM/DL (3.2-4.5); ALKALINE PHOSPHATASE 51 U/L (40-136); BILIRUBIN,TOTAL 0.3 MG/DL (0.1-1.0); BUN/CREATININE RATIO 21; CALCIUM 8.3 MG/DL (8.5-10.1); CARBON DIOXIDE 20 MMOL/L (21-32); CHLORIDE 102 MMOL/L (98-107); CREATININE SERUM 0.71 MG/DL (0.60-1.30); GFR ESTIMATED > 60; GLUCOSE 120 MG/DL (70-105); MAGNESIUM 1.7 MG/DL (1.6-2.4); PHOSPHORUS 2.3 MG/DL (2.3-4.7); POTASSIUM 3.9 MMOL/L (3.6-5.0); SODIUM 135 MMOL/L (135-145); TOTAL PROTEIN 5.7 GM/DL (6.4-8.2)
[2020-08-17] MEDS: KCL 20 MEQ TAB (K-DUR) PO SCH (06:41)
[2020-08-17] MEDS: ADVAIR HFA 115/21 MCG INHALER 8 GM IH SCH ×2 (07:07→23:05)
[2020-08-17] MEDS: SENNOSIDES 8.6 MG (SENOKOT) TAB PO SCH ×2 (08:56→20:41)
[2020-08-17] MEDS: REMDESIVIR INJ 100 MG in NS (IVPB) 230 ML IV SCH (08:56)
[2020-08-17] MEDS: PANTOPRAZOLE 40 MG (PROTONIX) TAB PO SCH (08:56)
[2020-08-17] MEDS: DOCUSATE SODIUM 100 MG (COLACE) CAP PO SCH ×2 (08:56→20:41)
[2020-08-17] MEDS ORDERED: guaiFENesin/DM (ROBITUSSIN DM) 10 ML UDC PO PRN (12:30)
--- NOTE | 2020-08-17 12:37 | Progress Note - Hospitalist ---
Subjective HPI/CC On Admission Date Seen by Provider: Aug 17, 2020 Time Seen by Provider: 12:30 Pt is a 65yoCF with a PMH of severe COPD/Asthma, NIDDMII who presented to outside ER due to cough, SOB, and fever. Her symptoms started on 08/11 with a high fever and severe fatigue. She didn't want to go with the ER with such a high fever so waited until 08/13 to be seen in the ER. She was found to be hypoxia and COVID positive prompting admission. This morning she states she has a severe cough and is conversationally dyspneic throughout our conversation. She denies history of intubation from asthma/COPD but states she has been "very close. Subjective/Events-last exam pt reports feeling much better. Still very dyspneic with exertion and has coughing fits. Objective Exam Vital Signs Vital Signs Date Time Temp Pulse Resp B/P (MAP) Pulse Ox O2 Delivery O2 Flow Rate FiO2 08/17/20 12:00 36.1 76 20 113/64 (80) 93 Nasal Cannula 2.00 08/14/20 15:27 28 Capillary Refill : Less Than 3 Seconds General Appearance: No Apparent Distress, WD/WN Respiratory: No Accessory Muscle Use; No Stridor; Wheezing Cardiovascular: Regular Rate, Rhythm, No Murmur Gastrointestinal: Normal Bowel Sounds, Non Tender, Soft Neurologic/Psychiatric: Alert, Oriented x3 Results/Procedures Lab Laboratory Tests 08/17/20 05:13 Patient resulted labs reviewed. Imaging: Reviewed Imaging Report Assessment/Plan Assessment and Plan Assess & Plan/Chief Complaint COVID 19 with hypoxia -Currently on 3 liters/min - wears 2lpm all the time -S/p Remdisivir and CVP -Decadron - GARCIA bigger issue at the moment than hypoxia - Continue to monitor closely COPD/AsthmaAE -Change decadron to 10mg IV daily -Advair to albuterol NIDDMII SSI Elevated LFTs Mild, trend with remdesivir Clinical Quality Measures DVT/VTE Risk/Contraindication: Risk Factor Score Per Nursin RFS Level Per Nursing on Admit: 3=High GERA AVALOS MD Aug 17, 2020 12:36
[2020-08-17] MEDS: ENOXAPARIN 40 MG/0.4 ML (LOVENOX) SYR SC SCH (16:44)
[2020-08-17] MEDS: PRIMIDONE 50 MG TAB (MYSOLINE) PO SCH (20:41)
[2020-08-17] MEDS: LATANOPROST 0.005% (XALATAN) OPHTH SOLN 2.5 ML OU SCH (20:41)
[2020-08-17] MEDS: MONTELUKAST 10 MG (SINGULAIR) TAB PO SCH (20:41)
[2020-08-17] MEDS: PROMETHAZINE/ CODEINE SYRUP 5 ML UDC PO PRN (20:48)
[2020-08-18] VITALS (7 sets, daily range): BP systolic 103–111; BP diastolic 60–71
[2020-08-18] MEDS: RT-ALBUTEROL INHALER HFA (VENTOLIN HFA) 18 GM IH SCH ×6 (02:04→21:27)
[2020-08-18] MEDS: CEFEPIME INJECTION 1,000 MG in WATER (STERILE) FOR INJECTION 10 ML IV SCH ×4 (05:26→23:35)
[2020-08-18] MEDS: inSUlin ASPART (NovoLOG) 1 UNIT/0.01 ML (CHARGE PER UNIT) SC SCH ×4 (05:26→21:53)
[2020-08-18 06:08] LABS: BASOPHILS % (AUTO) 1 % (0-10); EOSINOPHILS # (AUTO) 0.1 10^3/uL (0.0-0.3); EOSINOPHILS % (AUTO) 1 % (0-10); HEMATOCRIT 38 % (35-52); HEMOGLOBIN 12.7 g/dL (11.5-16.0); LYMPHOCYTES # (AUTO) 1.8 10^3/uL (1.0-4.0); LYMPHOCYTES % (AUTO) 32 % (12-44); MEAN CORPUSCULAR HEMOGLOBIN 31 pg (25-34); MEAN CORPUSCULAR HGB CONC 34 g/dL (32-36); MEAN CORPUSCULAR VOLUME 92 fL (80-99); MEAN PLATELET VOLUME 11.3 fL (9.0-12.2); MONOCYTES # (AUTO) 0.4 10^3/uL (0.0-1.0); MONOCYTES % (AUTO) 7 % (0-12); NEUTROPHILS # (AUTO) 3.3 10^3/uL (1.8-7.8); NEUTROPHILS % (AUTO) 58 % (42-75); PLATELET COUNT 208 10^3/uL (130-400); WHITE BLOOD COUNT 5.7 10^3/uL (4.3-11.0)
[2020-08-18 06:23] LABS: ALBUMIN 3.5 GM/DL (3.2-4.5)
[2020-08-18 06:24] LABS: CALCIUM 8.5 MG/DL (8.5-10.1)
[2020-08-18 06:26] LABS: GLUCOSE 99 MG/DL (70-105); TOTAL PROTEIN 6.1 GM/DL (6.4-8.2)
[2020-08-18 06:27] LABS: CARBON DIOXIDE 24 MMOL/L (21-32)
[2020-08-18 06:28] LABS: BILIRUBIN,TOTAL 0.6 MG/DL (0.1-1.0)
[2020-08-18 06:29] LABS: ALKALINE PHOSPHATASE 56 U/L (40-136); GFR ESTIMATED > 60; PHOSPHORUS 2.8 MG/DL (2.3-4.7)
[2020-08-18 06:30] LABS: BUN/CREATININE RATIO 17
[2020-08-18 06:32] LABS: ALANINE AMINOTRANSFERASE 68 U/L (0-55); MAGNESIUM 1.9 MG/DL (1.6-2.4)
[2020-08-18] MEDS: ADVAIR HFA 115/21 MCG INHALER 8 GM IH SCH ×2 (06:54→19:26)
[2020-08-18 07:01] LABS: CHLORIDE 102 MMOL/L (98-107); SODIUM 137 MMOL/L (135-145)
[2020-08-18] MEDS: KCL 20 MEQ TAB (K-DUR) PO SCH (07:55)
[2020-08-18] MEDS: SENNOSIDES 8.6 MG (SENOKOT) TAB PO SCH ×2 (08:59→21:59)
[2020-08-18] MEDS: PANTOPRAZOLE 40 MG (PROTONIX) TAB PO SCH (08:59)
[2020-08-18] MEDS: DOCUSATE SODIUM 100 MG (COLACE) CAP PO SCH ×2 (08:59→21:59)
[2020-08-18] MEDS: REMDESIVIR INJ 100 MG in NS (IVPB) 230 ML IV SCH (09:00)
[2020-08-18] MEDS ORDERED: SENNA W/DOCUSATE (SENOKOT S) TABLET PO PRN (09:00)
--- NOTE | 2020-08-18 10:37 | Progress Note - Hospitalist ---
Subjective HPI/CC On Admission Date Seen by Provider: Aug 18, 2020 Time Seen by Provider: 10:33 Pt is a 65yoCF with a PMH of severe COPD/Asthma, NIDDMII who presented to outside ER due to cough, SOB, and fever. Her symptoms started on 08/11 with a high fever and severe fatigue. She didn't want to go with the ER with such a high fever so waited until 08/13 to be seen in the ER. She was found to be hypoxia and COVID positive prompting admission. This morning she states she has a severe cough and is conversationally dyspneic throughout our conversation. She denies history of intubation from asthma/COPD but states she has been "very close. Subjective/Events-last exam Pt reports doing better. Slept well but still quite dyspneic with ambulation and having coughing fits. Objective Exam Vital Signs Vital Signs Date Time Temp Pulse Resp B/P (MAP) Pulse Ox O2 Delivery O2 Flow Rate FiO2 08/18/20 08:00 92 Nasal Cannula 2.00 08/18/20 08:00 36.4 75 20 111/71 (84) 08/14/20 15:27 28 Capillary Refill : Less Than 3 Seconds General Appearance: No Apparent Distress, WD/WN Respiratory: Wheezing, Other (coughing fits with deep inspiration) Cardiovascular: Regular Rate, Rhythm, No Murmur Gastrointestinal: Normal Bowel Sounds, Non Tender, Soft Neurologic/Psychiatric: Alert, Oriented x3, Normal Mood/Affect Results/Procedures Lab Laboratory Tests 08/18/20 05:39 Patient resulted labs reviewed. Imaging: Reviewed Imaging Report Assessment/Plan Assessment and Plan Assess & Plan/Chief Complaint COVID 19 with hypoxia - Currently on her baseline 2lpm but has significant dyspnea on exertion - S/p Remdisivir and CVP - Decadron - GARCIA bigger issue at the moment than hypoxia - Continue to monitor closely COPD/AsthmaAE -Change or oral Decadron -Advair to albuterol NIDDMII SSI Elevated LFTs Mild, trend with remdesivir, up a bit today but within range to continue Clinical Quality Measures DVT/VTE Risk/Contraindication: Risk Factor Score Per Nursin RFS Level Per Nursing on Admit: 3=High GERA AVALOS MD Aug 18, 2020 10:37
--- NOTE | 2020-08-18 13:30 | NUR ---
CM/SS visited with patient via phone for discharge planning. The patient reports that she is doing okay today but still has a cough. She states that she does wear 2L of oxygen at baseline and is currently at her baseline. However, per chart review she becomes dyspneic with ambulation. CM/SS will await oxygen study to determine if a new script with be sent to DME. DME: [facility] for oxygen. Denies other equipment. Home: Patient lives at home with her . She states prior to this hospital stay she was independent at home. Will continue to follow for discharge planning.
--- NOTE | 2020-08-18 13:43 | NUR ---
"RD ASSESSMENT PMHx: COPD; DM; GERD; PT INTERACTION: Note pt currently in COVID isolation, per chart review. Note all information gathered for nutrition assessment for LOS is per chart review and per Merle PCT. Merle states current appetite appears good. Note avg PO intake 75% x4d, per chart review. Merle states no issues with nausea, vomiting, constipation, or diarrhea that she is aware of. Note last BM was 08/08, and pt currently on bowel regimen of colace BID; and senna BID, per chart review. Note unable to determine recent wt hx, per chart review. Note unable to determine current level of DM management, and not unable to determine recent HbA1c, per chart review. ABNORMAL NUTRITION-RELATED LAB VALUES LOW: AST 68; ALT 68; HIGH: Pro 6.1 Est. kcal needs: 1500 kcal | 25 kcal/kg Est. Pro needs: 60 g Pro | 1.0 g Pro/kg PES STATEMENT: Given current PO intake, no nutrition diagnosis at this time (NO-1.1) INTERVENTION: Continue with current diet order of CHO 60g/m 1snack diet. Did not offer diet education on DM management at this time, d/t COVID isolation. Will continue to follow and reassess as pt needs, intake, and status change. Thierno Bateman, MS RD LD"
[2020-08-18] MEDS: ENOXAPARIN 40 MG/0.4 ML (LOVENOX) SYR SC SCH (15:11)
[2020-08-18] MEDS: MONTELUKAST 10 MG (SINGULAIR) TAB PO SCH (21:59)
[2020-08-18] MEDS: PRIMIDONE 50 MG TAB (MYSOLINE) PO SCH (21:59)
[2020-08-18] MEDS: PROMETHAZINE/ CODEINE SYRUP 5 ML UDC PO PRN (22:00)
[2020-08-18] MEDS: LATANOPROST 0.005% (XALATAN) OPHTH SOLN 2.5 ML OU SCH (22:00)
[2020-08-19] MEDS: RT-ALBUTEROL INHALER HFA (VENTOLIN HFA) 18 GM IH SCH ×2 (03:23→09:52)
[2020-08-19] MEDS: CEFEPIME INJECTION 1,000 MG in WATER (STERILE) FOR INJECTION 10 ML IV SCH (06:07)
[2020-08-19] MEDS: inSUlin ASPART (NovoLOG) 1 UNIT/0.01 ML (CHARGE PER UNIT) SC SCH (06:07)
[2020-08-19] MEDS ORDERED: dexAMETHasone 6 MG TAB (DECADRON) PO SCH (07:00)
[2020-08-19] MEDS: SENNOSIDES 8.6 MG (SENOKOT) TAB PO SCH (08:22)
[2020-08-19] MEDS: PANTOPRAZOLE 40 MG (PROTONIX) TAB PO SCH (08:22)
[2020-08-19] MEDS: DOCUSATE SODIUM 100 MG (COLACE) CAP PO SCH (08:22)
--- NOTE | 2020-08-19 08:58 | Discharge Summary ---
Diagnosis/Chief Complaint Date of Admission Aug 13, 2020 at 14:48 Date of Discharge Admission Diagnosis COVID19 Hypoxia COPD/Asthma Continue decadron Discussed EUA status of remdesivir and convalescent plasma with patient who agrees to treatment Due to stridor and conversational dyspnea will transfer to ICU as is high risk for decompensation Discussed with lincoln Harrison Continue home meds as able MAT protocol IS Lovenox NIDDMII anticipate higher BS with steroids SSI Elevated LFTs Mild, trend with remdesivir Primary Care Amador Pal MD Discharge Summary Discharge Physical Exam Allergies: Coded Allergies: HARLEEN Inhibitors (Verified Allergy, Severe, 08/13/20) amoxicillin (Verified Allergy, Severe, 08/13/20) azithromycin (Verified Allergy, Severe, 08/13/20) ciprofloxacin (Verified Allergy, Severe, 08/13/20) clavulanic acid (Verified Allergy, Severe, 08/13/20) glycine (Verified Allergy, Severe, 08/13/20) immune globulin,alpha (IgA) greater than 50 mcg/mL (Verified Allergy, Severe, 08/13/20) immune globulin,gamma (IgG) human (Verified Allergy, Severe, 08/13/20) losartan (Verified Allergy, Severe, 08/13/20) regadenoson (Verified Allergy, Severe, 08/13/20) tetracycline (Verified Allergy, Severe, 08/13/20) soy (Verified Allergy, Intermediate, Wheezing, 08/13/20) strawberry (Verified Allergy, Intermediate, 08/13/20) fentanyl (Verified Allergy, Mild, 08/13/20) wheat (Verified Allergy, Mild, 08/13/20) Vitals & I&Os Vital Signs Date Time Temp Pulse Resp B/P (MAP) Pulse Ox O2 Delivery O2 Flow Rate FiO2 08/19/20 03:24 95 Nasal Cannula 2.00 08/18/20 23:31 36.9 71 20 110/69 (83) 08/18/20 15:34 28 Hospital Course Labs (last 24 hrs) Laboratory Tests 08/18/20 11:14: Glucometer 168H 08/18/20 16:04: Glucometer 205H 08/18/20 21:51: Glucometer 164H 08/19/20 06:06: Glucometer 108 Patient resulted labs reviewed. Pending Labs Laboratory Tests 08/19/20 06:06: Glucometer 108 Imaging: Reviewed Imaging Report Discharge Home Medications: Active Scripts Active Reported Prednisone 10 Mg Tab 10 Mg PO DAILY Levalbuterol Tartrate Hfa (Levalbuterol Tartrate) 15 Gm Hfa.aer.ad 2 Puff IH Q4H PRN [place]-3 ([place]-3 Fatty Acids) 1,000 Mg Capsule 4,000 Mg PO DAILY B-12 (Cyanocobalamin (Vitamin B-12)) 500 Mcg Tablet 500 Mcg PO DAILY Januvia (Sitagliptin Phosphate) 100 Mg Tablet 100 Mg PO DAILY TAKE WITH BREAKFAST Diphenhydramine HCl 50 Mg Capsule 100 Mg PO DAILY TAKES 2 (50MG) TABLETS Zyrtec (Cetirizine HCl) 10 Mg Tablet 5 Mg PO DAILY Xalatan (Latanoprost) 2.5 Ml Drops 1 Drop OU HS Privigen 10% Vial (Immune Globulin,Gamma(IgG)) 50 Ml Vial Unknown Dose EVERY 2 WEEKS Mucinex (Guaifenesin) 600 Mg Tab.er.12h 600 Mg PO BID Advair Hfa 115-21 Mcg Inhaler (Fluticasone/Salmeterol) 12 Gm Hfa.aer.ad 2 Puff INH Q12H Dupixent (Dupilumab) 300 Mg/2 Ml Syringe 300 Mg SQ EVERY 2 WEEKS Mysoline (Primidone) 50 Mg Tablet 50 Mg PO HS Montelukast Sodium 10 Mg Tablet 10 Mg PO HS Vitamin D3 (Cholecalciferol (Vitamin D3)) 50 Mcg Tab.chew 1,000 Units PO DAILY Xolair (Omalizumab) 150 Mg/1 Ml Syringe 150 Mg SQ EVERY 2 WEEKS Prednisone 20 Mg Tab 20 Mg PO DAILY Spiriva (Tiotropium [place]) 1 Inh Aerp 18 Mcg IH DAILY Omeprazole 20 Mg Tablet.dr 20 Mg PO BID Fenofibrate 160 Mg Tablet 160 Mg PO DAILY Cellcept (Mycophenolate Mofetil) 500 Mg Tablet 1,000 Mg PO BID TAKES 2 (500MG) CAPSULES BID Instructions to patient/family Please see electronic discharge instructions given to patient. Clinical Quality Measures DVT/VTE Risk/Contraindication: Risk Factor Score Per Nursin RFS Level Per Nursing on Admit: 3=High GERA AVALOS MD Aug 19, 2020 08:58
[2020-08-19] MEDS ORDERED: DEXA6TAB PO (09:01)
[2020-08-19] MEDS ORDERED: Promethazine/Codeine PO (09:01)
[2020-08-19 09:10] LABS: BASOPHILS # (AUTO) 0.1 10^3/uL (0.0-0.1); BASOPHILS % (AUTO) 1 % (0-10); EOSINOPHILS # (AUTO) 0.2 10^3/uL (0.0-0.3); EOSINOPHILS % (AUTO) 3 % (0-10); HEMATOCRIT 39 % (35-52); HEMOGLOBIN 12.9 g/dL (11.5-16.0); LYMPHOCYTES # (AUTO) 1.4 10^3/uL (1.0-4.0); LYMPHOCYTES % (AUTO) 22 % (12-44); MEAN CORPUSCULAR HEMOGLOBIN 31 pg (25-34); MEAN CORPUSCULAR HGB CONC 33 g/dL (32-36); MEAN CORPUSCULAR VOLUME 92 fL (80-99); MEAN PLATELET VOLUME 11.5 fL (9.0-12.2); MONOCYTES # (AUTO) 0.6 10^3/uL (0.0-1.0); MONOCYTES % (AUTO) 9 % (0-12); NEUTROPHILS # (AUTO) 3.7 10^3/uL (1.8-7.8); NEUTROPHILS % (AUTO) 60 % (42-75); PLATELET COUNT 208 10^3/uL (130-400); WHITE BLOOD COUNT 6.2 10^3/uL (4.3-11.0)
--- NOTE | 2020-08-19 09:11 | Discharge Inst-Simple/Standard ---
Discharge Inst-Standard Discharge Medications New, Converted or Re-Newed RX: Transmitted to Pharmacy Patient Instructions/Follow Up Plan of Care/Instructions/FU: Please continue to take your medications as written. Please follow up with your primary care doctor to follow up this hospital stay. Activity as Tolerated: Yes Discharge Diet: No Restrictions Return to The Hospital For: Chest pain, shortness of breath, abdominal pain, fever, coughing fits, if you feel you are getting worse. GERA AVALOS MD Aug 19, 2020 09:11
[2020-08-19 09:20] LABS: ALANINE AMINOTRANSFERASE 60 U/L (0-55); ALBUMIN 3.6 GM/DL (3.2-4.5); ALKALINE PHOSPHATASE 64 U/L (40-136); BILIRUBIN,TOTAL 0.6 MG/DL (0.1-1.0); BUN/CREATININE RATIO 22; CALCIUM 8.7 MG/DL (8.5-10.1); CARBON DIOXIDE 24 MMOL/L (21-32); CHLORIDE 100 MMOL/L (98-107); CREATININE SERUM 0.68 MG/DL (0.60-1.30); GFR ESTIMATED > 60; GLUCOSE 122 MG/DL (70-105); MAGNESIUM 1.9 MG/DL (1.6-2.4); PHOSPHORUS 3.4 MG/DL (2.3-4.7); POTASSIUM 4.2 MMOL/L (3.6-5.0); SODIUM 136 MMOL/L (135-145); TOTAL PROTEIN 6.3 GM/DL (6.4-8.2)
== END 2020-08-19 11:01 | disposition home or self-care (01) | DRG 178 ==
LOC: 4TH 14:48 → ICU 08-14 10:28 → 4TH 08-16 10:54
PROVIDERS: ADMIT Internal Medicine; ATTEND Internal Medicine
PROC: XW033E5 Introduction of Remdesivir Anti-infective into Peripheral Vein, Percutaneous Approach, New Technology Group 5 (ICD-10-PCS; principal; 2020-08-14)
PROC: XW13325 Transfusion of Convalescent Plasma (Nonautologous) into Peripheral Vein, Percutaneous Approach, New Technology Group 5 (ICD-10-PCS; 2020-08-14)
DX: U07.1 COVID-19 (principal); J45.901 Unspecified asthma with (acute) exacerbation; R06.1 Stridor; E11.9 Type 2 diabetes mellitus without complications; R09.02 Hypoxemia; J44.9 Chronic obstructive pulmonary disease, unspecified; K21.9 Gastro-esophageal reflux disease without esophagitis; N39.3 Stress incontinence (female) (male); R25.2 Cramp and spasm; R79.89 Other specified abnormal findings of blood chemistry; H40.9 Unspecified glaucoma
CPT/HCPCS: 36415; 71045; 80053; 81000; 82962; 83735; 83880; 84100; 84145; 85025; 85379; 86850; 86900; 86901; 90686; 94640; 94664; 94760